=== PATIENT | female | born 1990 | race Caucasian/White ===

== ENCOUNTER → 2017-03-24 | Outpatient (REF) | payer OTHER | LOC: M SFHCWAGY 09:52 | PROVIDERS: ATTEND Nurse Practitioner Women's Health | DX: Z12.4 Encounter for screening for malignant neoplasm of cervix (principal) ==

== ENCOUNTER → 2018-06-02 | Outpatient (CLI) | payer OTHER ==
[~2018-06-02] MED LIST: AZUR1TAB PO; ONDA4TAB5 PO; OXYB5TAB10 PO; PARO10TA3 PO
[2018-06-02 13:43] LABS: BASO % 0.3 % (0.0-1.0); HEMATOCRIT 37.9 % (36.0-47.0); HEMOGLOBIN 12.9 g/dl (12.0-15.5); LYMPH # 0.5 10^3/uL (1.5-6.5); LYMPH % 6.9 % (24.0-44.0); MEAN CORPUSCULAR HEMOGLOBIN 29.3 pg (27.0-33.0); MEAN CORPUSCULAR VOLUME 85.9 fl (80.0-96.0); MONO # 0.7 10^3/uL (0.0-0.8); MONO % 10.3 % (0.0-5.0); NEUTROPHILS # 5.6 10^3/uL (1.8-7.7); NEUTROPHILS % 81.8 % (36.0-66.0); PLATELET COUNT, AUTOMATED 340 10^3/uL (150-450); RED BLOOD COUNT 4.41 10^6/uL (4.00-5.40); WHITE BLOOD COUNT 6.8 10^3/uL (4.0-10.0)
[2018-06-02 14:12] LABS: HEMOGLOBIN A1c 5.4 %
[2018-06-03 12:32] LABS: HEPATITIS C VIRUS ABY INDEX 0.1 INDEX (<0.8); HIV 1&2 SCREEN CENTAUR NEGATIVE (NEGATIVE); RUBELLA IgG QUALITATIVE IMMUNE (IMMUNE)
== END ==
LOC: M SMT 10:52
PROVIDERS: ATTEND Advanced Practice Midwife
DX: Z36.89 Encounter for other specified antenatal screening (principal)

== ENCOUNTER → 2018-08-10 | Outpatient (CLI) | payer OTHER | LOC: M SMT 11:09 | PROVIDERS: ATTEND Advanced Practice Midwife | DX: Z34.82 Encounter for supervision of other normal pregnancy, second trimester (principal); Z3A.00 Weeks of gestation of pregnancy not specified ==

== ENCOUNTER → 2018-09-16 | Outpatient (REF) | payer OTHER | LOC: M LAB REF 12:43 | PROVIDERS: ATTEND Advanced Practice Midwife | DX: Z34.02 Encounter for supervision of normal first pregnancy, second trimester (principal); Z3A.00 Weeks of gestation of pregnancy not specified ==

== ENCOUNTER → 2018-10-10 | Outpatient (CLI) | payer OTHER ==
[2018-10-10 12:44] LABS: HEMATOCRIT 34.4 % (36.0-47.0); HEMOGLOBIN 11.5 g/dl (12.0-15.5); MEAN CORPUSCULAR HEMOGLOBIN 29.5 pg (27.0-33.0); MEAN CORPUSCULAR HGB CONC 33.4 g/dl (32.0-36.5); MEAN CORPUSCULAR VOLUME 88.2 fl (80.0-96.0); PLATELET COUNT, AUTOMATED 317 10^3/uL (150-450); WHITE BLOOD COUNT 9.3 10^3/uL (4.0-10.0)
== END ==
LOC: M ADAMS 09:26
PROVIDERS: ATTEND Advanced Practice Midwife
DX: O26.892 Other specified pregnancy related conditions, second trimester (principal)

== ENCOUNTER → 2018-12-02 | Outpatient (REF) | payer OTHER | LOC: M LAB REF 12:57 | PROVIDERS: ATTEND Advanced Practice Midwife | DX: Z34.83 Encounter for supervision of other normal pregnancy, third trimester (principal) ==

== ENCOUNTER → 2018-12-29 | Outpatient (CLI) | payer OTHER ==
[~2018-12-29] MED LIST changes: +ACET-683 PO; +COLA100C5 PO; +IBUP80TA PO; +PRENCHW PO
[2018-12-29 14:15] LABS: HEMATOCRIT 37.1 % (36.0-47.0); HEMOGLOBIN 12.2 g/dl (12.0-15.5); MEAN CORPUSCULAR HEMOGLOBIN 28.7 pg (27.0-33.0); MEAN CORPUSCULAR HGB CONC 32.9 g/dl (32.0-36.5); MEAN CORPUSCULAR VOLUME 87.3 fl (80.0-96.0); PLATELET COUNT, AUTOMATED 336 10^3/uL (150-450); RED BLOOD COUNT 4.25 10^6/uL (4.00-5.40); WHITE BLOOD COUNT 12.6 10^3/uL (4.0-10.0)
[2018-12-29 14:20] LABS: ALT/SGPT 30 U/L (12-78); BILIRUBIN,TOTAL 0.4 MG/DL (0.2-1.0); GLOMERULAR FILTRATION RATE > 60.0 (>60); LDH LACTATE DEHYDROGENASE 160 U/L (84-246); URIC ACID 3.8 MG/DL (2.6-6.0)
== END ==
LOC: M SMT 10:17
PROVIDERS: ATTEND Advanced Practice Midwife
DX: O16.3 Unspecified maternal hypertension, third trimester (principal); Z3A.00 Weeks of gestation of pregnancy not specified

== ENCOUNTER 2018-12-30 13:22 | Inpatient (IN) | payer OTHER ==
[~2018-12-30] VITALS: Ht 162.6 cm; Wt 102.0 kg
[2018-12-30] VITALS (14 sets, daily range): BP systolic 127–183; BP diastolic 68–120
[~2018-12-30 13:22] MED LIST changes: -ACET-683 PO; -COLA100C5 PO; -IBUP80TA PO; -PRENCHW PO
[2018-12-30] MEDS: miSOPROStol 50 MCG 1/2 TAB (S0191) PO SCH ×2 (16:17→20:21)
--- NOTE | 2018-12-30 17:58 | HPE ---
DATE OF ADMISSION: 12/30/2018 CHIEF COMPLAINT: Induction of labor secondary to elevated blood pressures HISTORY OF PRESENT ILLNESS: Soraya is a 28-year-old G1, P 0-0-0-0, who is at 39 + 4 weeks gestation with estimated date of confinement of 01/02/2019 by a last menstrual period of 03/28/2019 confirmed by first trimester ultrasound. She is presenting to labor and delivery today for induction of labor secondary to high blood pressures in the office. She is feeling baby move, denies leakage of fluid, denies bleeding or discharge, denies contractions. She was sent over from the office for blood pressure of 130/96 and her spot urine yesterday was 0.12. She initiated care in the first trimester and his been compliant throughout. She has had some elevated pressures in the office, 140/88 at 25 + 3 weeks gestation, repeat was 138/88. One week later her blood pressure was 132/84. The subsequent office visits had normotensive blood pressures. LABS: Blood type is O+, antibody screen negative, rubella immune, VDRL nonreactive, hepatitis B surface antigen negative, HIV negative, hepatitis C nonreactive, chlamydia negative, gonorrhea negative. Panorama was low risk male. GBS negative. Hemoglobin A1c 5.4. OBSTETRICAL ULTRASOUND: Single intrauterine , posterior placenta, no anomalies. PAST SURGICAL HISTORY: None. PAST MEDICAL HISTORY: Asthma as a child. MEDICATIONS: vitamins. FAMILY HISTORY: Bladder and oral cancer. SOCIAL HISTORY: No personal history of abuse, the patient has never smoked, denies alcohol or drug use. She has been with her current partner for 3 years. PHYSICAL EXAMINATION: VITALS: Temperature 98.4, Pulse 96, respiratory rate 18, blood pressure 177/113, repeat 140/87. ABDOMEN: Gravid, no palpable contractions. STERILE VAGINAL EXAM: Close, thick and high. MONITOR: Heart rate 155 beats per minute, moderate variability, accelerations, no decelerations, category one tracing. TOCO: Contractions every 7 minutes. ASSESSMENT/PLAN: 28-year-old G-1, P-0 at 39 plus 4 weeks estimated gestational age presenting for induction of labor secondary to elevated blood pressures. Admit to labor and delivery with routine labs and orders. Will monitor her blood pressures closely. GBS negative, no antibiotics needed. Anticipate cervical ripening. MTDD
[2018-12-30 18:31] LABS: HEMATOCRIT 35.6 % (36.0-47.0); MEAN CORPUSCULAR HEMOGLOBIN 29.2 pg (27.0-33.0); MEAN CORPUSCULAR HGB CONC 33.7 g/dl (32.0-36.5); MEAN CORPUSCULAR VOLUME 86.6 fl (80.0-96.0); PLATELET COUNT, AUTOMATED 343 10^3/uL (150-450); RED BLOOD COUNT 4.11 10^6/uL (4.00-5.40); WHITE BLOOD COUNT 12.7 10^3/uL (4.0-10.0)
[2018-12-30 19:05] LABS: ALT/SGPT 32 U/L (12-78); BILIRUBIN,TOTAL 0.4 MG/DL (0.2-1.0); CREATININE FOR GFR 0.59 MG/DL (0.55-1.30); GLOMERULAR FILTRATION RATE > 60.0 (>60); LDH LACTATE DEHYDROGENASE 176 U/L (84-246); URIC ACID 3.8 MG/DL (2.6-6.0)
[2018-12-31] VITALS (61 sets, daily range): BP systolic 107–140; BP diastolic 57–91
[2018-12-31] MEDS: miSOPROStol 50 MCG 1/2 TAB (S0191) PO SCH ×2 (00:55→04:56)
[2018-12-31] MEDS ORDERED: LR 1,000 ML IV SCH (09:43)
[2018-12-31] MEDS ORDERED: OXYTOCIN DRIP 30 UNITS in APPROPRIATE DILUENT 1 EA IV SCH (09:45)
[2018-12-31] MEDS ORDERED: FENTANYL 2MCG/ML ROPIVACAINE 0.2% IN 0.9% NACL 100ML IVBAG As Ordered ONE (10:43)
[2018-12-31] MEDS ORDERED: FENTANYL/ROPIVACAINE/NACL BAG 100 ML EPIDURAL SCH (12:15)
[2018-12-31] MEDS ORDERED: NALOXONE INJ 0.4 MG/1 ML VIAL (J2310) IV PRN (12:15)
[2018-12-31] MEDS ORDERED: LACTATED RINGER'S 1000 ML IV PRN (12:15)
[2018-12-31] MEDS ORDERED: ePHEDrine SULFATE 25 MG/5 ML(5MG/ML) SYRINGE IV PRN (12:15)
[2018-12-31] MEDS ORDERED: EPIDURAL COMMENT XX SCH (12:15)
[2018-12-31] MEDS ORDERED: ONDANSETRON 4MG/2ML VIAL (J2405) IV PRN (12:15)
[2018-12-31] MEDS ORDERED: REFRIGERATOR IV KEYS XX PRN (12:15)
[2018-12-31] MEDS ORDERED: diphenhydrAMINE INJ 50MG/ML VIAL (J1200) IV PRN (12:15)
[2018-12-31] MEDS ORDERED: EPIDURAL/PCA KEYS XX PRN (12:15)
[2018-12-31] MEDS ORDERED: CALCIUM CARBONATE 500 MG CHEW U/D PO ONE (20:00)
[2018-12-31] MEDS ORDERED: CALCIUM CARBONATE 500 MG CHEW U/D As Ordered ONE (20:01)
[2019-01-01] VITALS (8 sets, daily range): BP systolic 108–126; BP diastolic 57–71
[2019-01-01 01:14] LABS: CORD GAS ABE A -11.3; CORD GAS ABE V -11.6; CORD GAS HCO3 A 19.3 MEQ/L; CORD GAS HCO3 V 18.2 MEQ/L; CORD GAS O2 SAT A 53.7 %; CORD GAS O2 SAT V 53.9 %; CORD GAS PCO2 A 60.2 mmHg; CORD GAS PCO2 V 54.9 mmHg; CORD GAS PH A 7.124 UNITS; CORD GAS PH V 7.139 UNITS; CORD GAS PO2 A 27.2 mmHg; CORD GAS PO2 V 27.3 mmHg; CORD GAS SBC V 14.8 MEQ/L; CORD GAS TCO2 A 21.2 MEQ/L; CORD GAS TCO2 V 19.9 MEQ/L
[2019-01-01] MEDS ORDERED: OXYTOCIN DRIP 30 UNITS in APPROPRIATE DILUENT 1 EA IV ONE (02:00)
[2019-01-01] MEDS ORDERED: DIBUCAINE 1% OINTMENT 30GM TOP PRN (02:00)
[2019-01-01] MEDS ORDERED: RHOGAM 300 MCG (1500 IU) INJ (J2790) IM SCH (02:00)
[2019-01-01] MEDS ORDERED: ONDANSETRON 4MG/2ML VIAL (J2405) IV PRN (02:00)
[2019-01-01] MEDS ORDERED: DOCUSATE SODIUM 100 MG CAP PO PRN (02:00)
[2019-01-01] MEDS ORDERED: METHYLERGONOVINE MALEATE 0.2 MG TAB PO PRN (02:00)
[2019-01-01] MEDS ORDERED: ACETAMINOPHEN TAB 650MG DOSE (2X325MG) PO PRN (02:00)
[2019-01-01] MEDS ORDERED: MEASLES,MUMPS,RUBELLA VACCINE INJ (MMR-II) (90707) SC SCH (02:00)
[2019-01-01] MEDS ORDERED: IBUPROFEN 600 MG TAB PO PRN (02:00)
[2019-01-01] MEDS: IBUPROFEN 800 MG TAB PO PRN ×2 (03:12→14:23)
[2019-01-01] MEDS: PRENATAL VITAMINS CHEWABLE TABLET PO SCH (09:00)
[2019-01-01] MEDS: ACETAMINOPHEN 500 MG TAB PO PRN (09:00)
[2019-01-01] MEDS ORDERED: FLUCONAZOLE 50MG TABLET PO ONE (18:00)
[2019-01-02] MEDS: IBUPROFEN 800 MG TAB PO PRN ×2 (04:28→13:00)
[2019-01-02 06:27] VITALS: BP 110/67
[2019-01-02] MEDS: PRENATAL VITAMINS CHEWABLE TABLET PO SCH (10:07)
[2019-01-02] MEDS: ACETAMINOPHEN 500 MG TAB PO PRN (16:52)
[2019-01-02 18:00] VITALS: BP_SYST 128; BP_SYST 130; BP_DIAS 62; BP_DIAS 70
--- NOTE | 2019-01-03 00:28 | DN ---
DATE OF DELIVERY: 01/01/2019 PREDELIVERY DIAGNOSES: 39 weeks, gestational hypertension. POSTDELIVERY DIAGNOSIS: Delivered. PROCEDURE: Low forceps-assisted vaginal delivery. GENERAL ASSISTANT: Dr. Romain Suarez ANESTHESIA: Epidural. ESTIMATED BLOOD LOSS: 800 mL. FINDINGS: 7 pound 8 ounce, 3390 gram male , scores 4, 7, and 8. Arterial cord blood gas 7.124, base excess -11.3. Venous cord blood gas 7.139, base excess -11.6. DELIVERY SUMMARY: After a 30-minute second stage, the patient was noted to have category 3 trace and this consisted of deep decelerations with absent variability. It is estimated that the trace category 3 was over approximately the past 10 minutes of the second stage. The patient was not making adequate progress pushing. Decision was made to assist with forceps at +2 station. [id number] forceps were applied to the right occiput posterior (ROP) asynclitic vertex at +2 station. Delivery was accomplished with single controlled traction along with maternal effort. Forceps were disarticulated just prior to delivery of the vertex. There was noted to be cord wrapped around the body of the baby. The shoulders delivered with ease. The was handed to the mother. The cord was doubly clamped and cut. Specimens were obtained for arterial/venous blood gas. Placenta was delivered spontaneous and appeared to be intact. Bilateral sulcus tears were noted. A second-degree perineal laceration was noted. Vaginal laceration repaired with #2-0 chromic in the usual fashion. The excess blood loss came during the repair of the sulcus, which accounted for a total of 800 mL. The patient received intravenous (IV) Pitocin immediately after delivery of the placenta. Sponge and needle counts were correct.
[2019-01-03] MEDS: IBUPROFEN 800 MG TAB PO PRN (03:31)
[2019-01-03 06:00] VITALS: BP 124/67
--- NOTE | 2019-01-03 07:08 | OBDS ---
[facility] Obstetrical Discharge Sum. Obstetrical Discharge Summary Racker Octave Board/Provider: JO TONG CNM Date: Jan 03, 2019 Time: 07:02 : 1 Term: 1 Pre-term: 0 Abortions: 0 Livin VDRL: Non-Reactive Rh: Positive Rubella: Immune Labor Induced Delivery forcep delivery Sex: Male Weight: pounds (7), ounces (8), grams (3390) Anesthesia: Other (epidural) Episiotomy no-intact A/P, Post Course List any complications Admission diagnosis: IUP at 39 weeks gestation, GHTN. Discharge diagnosis: Day 2 Condition at Discharge: stable Discharge Instructions: Home/other: see discharge instructions Activity: as tolerated-pelvic rest Diet: regular Medications: PNV, Motrin, Tylenol Follow-up: 1-2 weeks for BP check Other: Reviewed symptoms of preeclampsia Vital Signs Label Value Date Time Patient Temperature 96.1 degrees F 01/03/19 0600 Temperature Source Temporal 01/03/19 0600 Pulse 91 01/03/19 0600 Respiratory Rate 17 bpm 01/03/19 0600 Blood Pressure Assessment 124/67 (86) 01/03/19 0600 Source Automatic Cuff (NIBP) Bedside Pulse Oximetry 98 % 01/03/19 06 JO TONG CNM Jan 03, 2019 07:08
[2019-01-03] MEDS ORDERED: IBUP80TA PO (07:15)
[2019-01-03] MEDS ORDERED: ACET-683 PO (07:15)
[2019-01-03] MEDS ORDERED: PRENCHW PO (07:15)
[2019-01-03] MEDS: PRENATAL VITAMINS CHEWABLE TABLET PO SCH (07:53)
[2019-01-03] MEDS ORDERED: COLA100C5 PO (08:03)
== END 2019-01-03 08:06 | disposition home or self-care (01) | DRG 560 ==
LOC: M LDI 13:22 → M OBS 01-01 04:35
PROVIDERS: ADMIT Advanced Practice Midwife; ATTEND Advanced Practice Midwife
PROC: 10D07Z3 Extraction of Products of Conception, Low Forceps, Via Natural or Artificial Opening (ICD-10-PCS; principal; 2019-01-01)
PROC: 3E0P7GC Introduction of Other Therapeutic Substance into Female Reproductive, Via Natural or Artificial Opening (ICD-10-PCS; 2019-01-01)
PROC: 0KQM0ZZ Repair Perineum Muscle, Open Approach (ICD-10-PCS; 2019-01-01)
DX: O13.4 Gestational [pregnancy-induced] hypertension without significant proteinuria, complicating childbirth (principal); O76 Abnormality in fetal heart rate and rhythm complicating labor and delivery; Z3A.39 39 weeks gestation of pregnancy; Z37.0 Single live birth; O70.1 Second degree perineal laceration during delivery; O69.82X0 Labor and delivery complicated by other cord entanglement, without compression, not applicable or unspecified

== ENCOUNTER → 2020-05-15 | Outpatient (REF) | payer OTHER ==
[~2020-05-15] MED LIST changes: +ACET-683 PO; +COLA100C5 PO; +IBUP80TA PO; +ONDA-83 PO; -ONDA4TAB5 PO; +PRENCHW PO
== END ==
LOC: M SFHCWAGY 18:58
PROVIDERS: ATTEND Specialist
DX: Z01.419 Encounter for gynecological examination (general) (routine) without abnormal findings (principal)

== ENCOUNTER → 2020-12-04 | Outpatient (REF) | payer OTHER ==
[2020-12-04 13:25] LABS: ALBUMIN 3.5 GM/DL (3.2-5.2); ALT/SGPT 93 U/L (12-78); BILIRUBIN,TOTAL 0.4 MG/DL (0.2-1.0); BLOOD UREA NITROGEN 15 MG/DL (7-18); CALCIUM LEVEL 9.6 MG/DL (8.5-10.1); CARBON DIOXIDE LEVEL 28 MEQ/L (21-32); CHLORIDE LEVEL 106 MEQ/L (98-107); CREATININE FOR GFR 0.61 MG/DL (0.55-1.30); GLOMERULAR FILTRATION RATE > 60.0 (>60); GLUCOSE, FASTING 94 MG/DL (70-100); POTASSIUM SERUM 4.6 MEQ/L (3.5-5.1); SODIUM LEVEL 140 MEQ/L (136-145); TOTAL PROTEIN 7.2 GM/DL (6.4-8.2)
== END ==
LOC: M SFHCADAM 11:29
PROVIDERS: ATTEND Family Medicine
DX: F41.9 Anxiety disorder, unspecified (principal)

== ENCOUNTER → 2023-01-27 | Outpatient (REF) | payer OTHER ==
[~2023-01-27] MED LIST changes: -OXYB5TAB10 PO; +OXYB5TAB11 PO
== END ==
LOC: M SFHCWAGY 13:20
PROVIDERS: ATTEND Specialist
DX: Z12.4 Encounter for screening for malignant neoplasm of cervix (principal)

== ENCOUNTER → 2023-08-17 | Outpatient (CLI) | payer OTHER ==
[~2023-08-17] MED LIST changes: -OXYB5TAB11 PO; +OXYB5TAB14 PO
[2023-08-17 18:14] LABS: HEMATOCRIT 36.4 % (36.0-47.0); HEMOGLOBIN 12.6 g/dl (12.0-15.5); MEAN CORPUSCULAR HEMOGLOBIN 30.7 pg (27.0-33.0); MEAN CORPUSCULAR HGB CONC 34.6 g/dl (32.0-36.5); MEAN CORPUSCULAR VOLUME 88.6 fl (80.0-96.0); PLATELET COUNT, AUTOMATED 347 10^3/uL (150-450); RED BLOOD COUNT 4.11 10^6/uL (4.00-5.40); WHITE BLOOD COUNT 8.9 10^3/uL (4.0-10.0)
[2023-08-17 19:06] LABS: HIV 1&2 SCREEN NEGATIVE (NEGATIVE)
[2023-08-17 19:13] LABS: HEPATITIS C VIRUS ABY INDEX 0.02 INDEX (<0.8)
[2023-08-17 20:43] LABS: GC DNA AMPLIFICATION NEGATIVE (NEGATIVE)
== END ==
LOC: M PLALAB 15:23
PROVIDERS: ATTEND Specialist
DX: Z34.01 Encounter for supervision of normal first pregnancy, first trimester (principal)

== ENCOUNTER → 2023-11-08 | Outpatient (CLI) | payer OTHER | LOC: M WHC 09:23 | PROVIDERS: ATTEND Advanced Practice Midwife | DX: Z34.92 Encounter for supervision of normal pregnancy, unspecified, second trimester (principal) ==

== ENCOUNTER → 2023-12-01 | Outpatient (CLI) | payer OTHER ==
[2023-12-01 15:28] LABS: HEMATOCRIT 34.6 % (36.0-47.0); HEMOGLOBIN 11.7 g/dl (12.0-15.5); MEAN CORPUSCULAR HEMOGLOBIN 30.2 pg (27.0-33.0); MEAN CORPUSCULAR HGB CONC 33.8 g/dl (32.0-36.5); MEAN CORPUSCULAR VOLUME 89.2 fl (80.0-96.0); PLATELET COUNT, AUTOMATED 310 10^3/uL (150-450); RED BLOOD COUNT 3.88 10^6/uL (4.00-5.40); WHITE BLOOD COUNT 8.8 10^3/uL (4.0-10.0)
[2023-12-01 15:58] LABS: GLUCOSE CHALLENGE TEST 1 HOUR 136 MG/DL (LESS THAN 140)
[2023-12-01 16:33] LABS: HIV 1&2 SCREEN NEGATIVE (NEGATIVE)
[2023-12-01 16:41] LABS: HEPATITIS C VIRUS ABY INDEX < 0.02 INDEX (<0.8)
== END ==
LOC: M PLALAB 10:48
PROVIDERS: ATTEND Obstetrics & Gynecology
DX: Z34.92 Encounter for supervision of normal pregnancy, unspecified, second trimester (principal)

== ENCOUNTER → 2023-12-21 | Outpatient (CLI) | payer OTHER | LOC: M LAB 07:27 | PROVIDERS: ATTEND Obstetrics & Gynecology | DX: R73.01 Impaired fasting glucose (principal) ==

== ENCOUNTER → 2023-12-24 | Outpatient (CLI) | payer OTHER | LOC: M WHC 10:12 | PROVIDERS: ATTEND Obstetrics & Gynecology | DX: Z36.2 Encounter for other antenatal screening follow-up (principal) ==

== ENCOUNTER → 2024-02-09 | Outpatient (REF) | payer OTHER | LOC: M SFHCWAGY 14:50 | PROVIDERS: ATTEND Obstetrics & Gynecology | DX: Z34.83 Encounter for supervision of other normal pregnancy, third trimester (principal); Z3A.36 36 weeks gestation of pregnancy ==

== ENCOUNTER → 2024-02-17 | Outpatient (CLI) | payer OTHER ==
[~2024-02-17] MED LIST changes: +PERCOCET PO
[2024-02-17 10:22] LABS: HEMATOCRIT 34.9 % (36.0-47.0); HEMOGLOBIN 11.7 g/dl (12.0-15.5); MEAN CORPUSCULAR HEMOGLOBIN 29.3 pg (27.0-33.0); MEAN CORPUSCULAR HGB CONC 33.5 g/dl (32.0-36.5); MEAN CORPUSCULAR VOLUME 87.3 fl (80.0-96.0); PLATELET COUNT, AUTOMATED 297 10^3/uL (150-450); WHITE BLOOD COUNT 12.4 10^3/uL (4.0-10.0)
[2024-02-17 10:49] LABS: URIC ACID 4.4 MG/DL (3.1-7.8)
[2024-02-17 10:51] LABS: LDH LACTATE DEHYDROGENASE 138 U/L (120-246)
[2024-02-17 10:52] LABS: ALT/SGPT 33 U/L (7.0-40); AST/SGOT 14 U/L (<34); BILIRUBIN,TOTAL 0.3 MG/DL (0.3-1.2); CREATININE FOR GFR 0.55 MG/DL (0.55-1.30); GLOMERULAR FILTRATION RATE > 60.0 (>60)
[2024-02-17 10:56] LABS: TOTAL PROTEIN,RANDOM URINE 25.7 MG/DL (0.0-14.0)
[2024-02-17 11:01] LABS: CREATININE,RANDOM URINE 182.2 MG/DL
== END ==
LOC: M PLALAB 08:40
PROVIDERS: ATTEND Advanced Practice Midwife
DX: O16.3 Unspecified maternal hypertension, third trimester (principal)

== ENCOUNTER → 2024-04-19 | Outpatient (REF) | payer OTHER ==
[2024-04-19 13:53] LABS: BASO # 0.1 10^3/uL (0.0-0.2); BASO % 0.9 % (0.0-1.0); EOS # 0.1 10^3/uL (0.0-0.5); EOS % 2.4 % (0.0-3.0); HEMATOCRIT 37.4 % (36.0-47.0); HEMOGLOBIN 12.2 g/dl (12.0-15.5); LYMPH # 1.6 10^3/uL (1.5-5.0); LYMPH % 29.8 % (24.0-44.0); MEAN CORPUSCULAR HEMOGLOBIN 28.3 pg (27.0-33.0); MEAN CORPUSCULAR HGB CONC 32.6 g/dl (32.0-36.5); MEAN CORPUSCULAR VOLUME 86.8 fl (80.0-96.0); MONO # 0.5 10^3/uL (0.0-0.8); MONO % 9.1 % (2.0-8.0); NEUTROPHILS # 3.1 10^3/uL (1.5-8.5); NEUTROPHILS % 57.4 % (36.0-66.0); PLATELET COUNT, AUTOMATED 401 10^3/uL (150-450); RED BLOOD COUNT 4.31 10^6/uL (4.00-5.40); WHITE BLOOD COUNT 5.4 10^3/uL (4.0-10.0)
[2024-04-19 14:13] LABS: ALBUMIN 3.8 G/DL (3.2-5.2); ALKALINE PHOSPHATASE 96 U/L (35-104); ALT/SGPT 70 U/L (7.0-40); AST/SGOT 31 U/L (<34); BILIRUBIN,TOTAL 0.5 MG/DL (0.3-1.2); BLOOD UREA NITROGEN 17 MG/DL (9-23); CALCIUM LEVEL 10.2 MG/DL (8.5-10.1); CARBON DIOXIDE LEVEL 30 MMOL/L (20-31); CHLORIDE LEVEL 104 MMOL/L (98-107); CREATININE FOR GFR 0.71 MG/DL (0.55-1.30); GLOMERULAR FILTRATION RATE > 60.0 (>60); GLUCOSE, FASTING 92 MG/DL (60-100); POTASSIUM SERUM 4.6 MMOL/L (3.5-5.1); SODIUM LEVEL 140 MMOL/L (136-145); TOTAL PROTEIN 7.3 G/DL (5.7-8.2)
[2024-04-19 14:14] LABS: THYROID STIMULATING HORMONE 1.522 uIU/ML (0.55-4.78)
[2024-04-19 14:15] LABS: HEMOGLOBIN A1c 5.2 % (4.0-6.0)
== END ==
LOC: M SFHCADAM 10:15
PROVIDERS: ATTEND Physician Assistant
DX: O99.343 Other mental disorders complicating pregnancy, third trimester (principal); N32.81 Overactive bladder; O99.810 Abnormal glucose complicating pregnancy; O16.3 Unspecified maternal hypertension, third trimester; F41.9 Anxiety disorder, unspecified

== ENCOUNTER → 2024-12-27 | Outpatient (REF) | payer OTHER ==
[2024-12-27 14:05] LABS: PLATELET COUNT, AUTOMATED 365 10^3/uL (150-450)
[2024-12-27 14:39] LABS: ALT/SGPT 94 U/L (7.0-40); AST/SGOT 37 U/L (<34); CALCIUM LEVEL 9.1 MG/DL (8.5-10.1); CARBON DIOXIDE LEVEL 27 MMOL/L (20-31); CHLORIDE LEVEL 103 MMOL/L (98-107); CREATININE FOR GFR 0.74 MG/DL (0.55-1.30); GLOMERULAR FILTRATION RATE > 90.0 (>60); POTASSIUM SERUM 4.2 MMOL/L (3.5-5.1); SODIUM LEVEL 138 MMOL/L (136-145)
[2024-12-27 14:40] LABS: TOTAL 25(OH) VITAMIN D 18.9 NG/ML (20.0-100.0)
[2024-12-27 14:45] LABS: FREE T4 1.05 NG/DL (0.89-1.76)
[2024-12-27 15:33] LABS: ESTIMATED AVERAGE GLUCOSE 108.0 MG/DL (60-110)
== END ==
LOC: M SFHCADAM 10:52
PROVIDERS: ATTEND Physician Assistant
DX: O16.3 Unspecified maternal hypertension, third trimester (principal); E55.9 Vitamin D deficiency, unspecified; R74.8 Abnormal levels of other serum enzymes; R42 Dizziness and giddiness